=== PATIENT | male | born 1985 | race Caucasian/White ===

== ENCOUNTER 2021-03-08 02:27 | Emergency (ER) | payer BC, OTHER ==
[~2021-03-08] VITALS: Ht 182.9 cm; Wt 95.3 kg
[~2021-03-08 02:27] MED LIST: AMOXICILLIN875 MG PO; CORTISPORIN OTI10 ML OTIC; IBUPROFEN 800800 MG PO; NAPROSYN500 MG PO; NOHOMEMEDICATIONS; NORCO 5-325 TA1 EACH PO; PROVENTIL HFA6.7 G1 IH
[2021-03-08] MEDS ORDERED: ALLEGRA ALLERG180 MG PO (02:36)
[2021-03-08] MEDS ORDERED: CIPRO HC OTIC S10 ML OTIC (03:19)
[2021-03-08 03:23] VITALS: BP 113/53
[2021-03-10] MEDS ORDERED: AMOXICILLIN500 M1 PO (07:55)
== END 2021-03-08 03:30 | disposition home or self-care (01) ==
LOC: ER 02:27
DX: H60.92 Unspecified otitis externa, left ear (principal); J02.9 Acute pharyngitis, unspecified; J45.909 Unspecified asthma, uncomplicated; Z79.899 Other long term (current) drug therapy

== ENCOUNTER 2021-06-04 17:41 | Emergency (ER) | payer OTHER, BC ==
[~2021-06-04] VITALS: Ht 182.9 cm; Wt 95.3 kg
[~2021-06-04 17:41] MED LIST changes: +ALLEGRA ALLERG180 MG PO; +AMOXICILLIN500 M1 PO; +CIPRO HC OTIC S10 ML OTIC
[2021-06-04 17:42] VITALS: BP 118/70
[2021-06-04] MEDS ORDERED: ZANAFLEX4 MG PO (18:56)
== END 2021-06-04 18:54 | disposition home or self-care (01) ==
LOC: ER 17:41
DX: S09.8XXA Other specified injuries of head, initial encounter (principal); M54.2 Cervicalgia; J45.909 Unspecified asthma, uncomplicated; Z79.899 Other long term (current) drug therapy; V89.2XXA Person injured in unspecified motor-vehicle accident, traffic, initial encounter; Y93.89 Activity, other specified; Y92.89 Other specified places as the place of occurrence of the external cause; Y99.8 Other external cause status